=== PATIENT | male | born 1955 | race Caucasian/White ===

== ENCOUNTER → 2020-09-06 10:46 | Outpatient (BNVA) | payer MEDICARE, OTHER, SELFPAY | PROVIDERS: Visit Provider Urology | DX: N40.1 Benign prostatic hyperplasia with lower urinary tract symptoms (principal); N30.80 Other cystitis without hematuria; N13.8 Other obstructive and reflux uropathy; N20.0 Calculus of kidney | CPT/HCPCS: 51798; 81002; 99212 ==

== ENCOUNTER → 2021-09-11 09:37 | Outpatient (BNVA) | payer MEDICARE, OTHER, SELFPAY | PROVIDERS: PCP Internal Medicine; Visit Provider Urology | DX: N40.1 Benign prostatic hyperplasia with lower urinary tract symptoms (principal); N13.8 Other obstructive and reflux uropathy; N30.80 Other cystitis without hematuria | CPT/HCPCS: 99212 ==

== ENCOUNTER → 2022-11-21 10:17 | Outpatient (BNVA) | payer MEDICARE, MEDICAID, SELFPAY | PROVIDERS: PCP Internal Medicine; Visit Provider Urology | DX: N40.1 Benign prostatic hyperplasia with lower urinary tract symptoms (principal); N13.8 Other obstructive and reflux uropathy; N30.80 Other cystitis without hematuria | CPT/HCPCS: 51798; 99212 ==

== ENCOUNTER 2023-11-20 09:45 | Outpatient (REF) | payer MEDICARE, SELFPAY ==
[2023-11-20 11:35] LABS: Prostate Specific Antigen 1.41 ng/mL (<0.05-4.0)
== END 2023-11-20 09:46 | disposition home or self-care (01) ==
LOC: HO.LAB 09:45
PROVIDERS: Visit Provider Urology
DX: Z12.5 Encounter for screening for malignant neoplasm of prostate (principal); N40.1 Benign prostatic hyperplasia with lower urinary tract symptoms; N13.8 Other obstructive and reflux uropathy
CPT/HCPCS: 36415; 84153

== ENCOUNTER 2023-11-27 09:21 | Outpatient (AMB) | payer MEDICARE, MEDICAID, SELFPAY ==
--- NOTE | 2023-11-27 09:42 | A.OFFVIS_ITS ---
Intake Intake Visit Reasons: 1Y PSA(set)Confirmed Intake Note: Patient presents today for a yearly follow-up Meds- None Allergies to Antibiotic- No Known Allergies Blood Thinner- None Post Void Residual: 29ml Donor Services Manager Required: No Accompanied by: Self / Same As Patient Allergies acetaminophen [Tylenol] Allergy (Unknown, Verified 11/27/23 09:44) Unknown aspirin Allergy (Unknown, Verified 11/27/23:44) Unknown orange juice Allergy (Unknown, Uncoded 11/27/23:44) Unknown HPI HPI Comments History of Present Illness Details Yoseph is a pleasant male. He is a patient of Dr. Arnold. He seen for the following urologic conditions - lower urinary tract symptoms - cystitis cystica - nephrolithiasis Current PVR 30 cc, prior PVR 0 cc Stable urinary performance Five years from Procedure May follow up p.r.n. Lower Urinary Tract Symptoms: Laser procedure prostate 10/09 Current visit is for further evaluation of, post - prostate procedure. Current treatment includes observation. Prior treatments include procedure 10/09 - biopsy diagnosis with cystitis cystica Prostate Symptom Score 07/09 , Mild (0-8), Bother 1. Results from testing include cystoscopy high riding bladder neck (median bar) 08/08 PSA 12/07 0.8 06/10 1.8, 06/12 1.4, 11/15 2.4 Testing at next visit will include bladder scan, PSA PFSH Medical History Chronic diarrhea OA (osteoarthritis) Cystitis cystica Acute cystitis with hematuria Weak urinary stream BPH (benign prostatic hyperplasia) Surgical History History of surgery Social History Patient Tobacco Use Status: Current everyday Tobacco user Review of Systems Const Denies chills and Denies fever(s) Card Reports no additional complaints and Denies syncope Resp Denies cough GI Denies abdominal pain and Denies heartburn Reports as per HPI and Denies change in libido Neuro Denies syncope Psych Denies change in libido Endo Denies change in libido Physical Exam Const General: cooperative, healthy appearing, comfortable and no acute distress Orientation/consciousness: patient oriented x3 HEENT Face and sinus: Yes normal facial exam Mouth: moist mucous membranes Neck Neck: Yes normal visual inspection, Yes full ROM and Yes trachea midline Chest Chest palpation & inspection: normal inspection of the chest Resp Effort & Inspection: normal respiratory effort, able to speak in complete sentences and no respiratory distress GI Inspection: Yes normal to inspection Back/Spine/Pelvis Cervical Spine: normal cervical lordosis Thoracic/Lumbar Spine: thoracic and lumbar spine normal to inspection Skin General skin exam: no rashes or lesions noted Neuro General: patient oriented x3, gait normal, tone normal and moves all extremities Extrem General: Yes normal to inspection and Yes capillary refill normal Office Procedures Post Void Residual Post Residual Void Post Void Residual (PVR): 29 05533-Dark Void Residual by ultrasound Assessment & Plan Assessment & Plan (1) BPH w urinary obs/LUTS: Code(s): N40.1 - Benign prostatic hyperplasia with lower urinary tract symptoms; N13.8 - Other obstructive and reflux uropathy (2) Nephrolithiasis: Code(s): N20.0 - Calculus of kidney (3) Cystitis cystica: Code(s): N30.80 - Other cystitis without hematuria Plan P.r.n. follow-up Orders: Orders AMB Post Void Residual by ultrasound Today R33.9 - Retention of urine, unspecified Patient Instructions: Imaging studies, laboratory and physical exam results were discussed and reviewed in detail. No major barriers to patient understanding were identified. An opportunity to ask questions regarding the treatment plan was provided. All questions were answered. The patient expressed understanding and agreement with the above treatment plan. The patient is aware they should contact our office by phone for worsening of their current condition or the appearance of new urologic symptoms. Compliance is encouraged with any medications and followup testing that is ordered. It is a privilege to participate in the urologic care of your patient. If you have any questions or concerns regarding treatment for the above conditions, or other urologic issues, please do not hesitate to contact me. The office telephone contact is [phone]. This note is constructed using voice recognition software. While every effort has been made to ensure accuracy drug abuse technician errors may have been included. Yours sincerely, Dr Anthony Castro MD, [facility] - Urology Providers of Expert, Compassionate Care for the Genitourinary System Coding Level of Care Code Est Pt Level 4 (21631) Diagnoses BPH w urinary obs/LUTS N40.1; N13.8 Nephrolithiasis N20.0 Cystitis cystica N30.80 CPT Codes Post Residual Void - PVR CPT Code: 12025-Xfad Void Residual by ultrasound ([id number])
== END 2023-11-27 10:03 | disposition home or self-care (01) ==
PROVIDERS: Visit Provider Urology
DX: N40.1 Benign prostatic hyperplasia with lower urinary tract symptoms (principal); N13.8 Other obstructive and reflux uropathy; N20.0 Calculus of kidney; N30.80 Other cystitis without hematuria
CPT/HCPCS: 99213

== ENCOUNTER → 2023-11-27 09:21 | Outpatient (BNVA) | payer MEDICARE, MEDICAID, SELFPAY | PROVIDERS: Visit Provider Urology | DX: N40.1 Benign prostatic hyperplasia with lower urinary tract symptoms (principal); N13.8 Other obstructive and reflux uropathy; N20.0 Calculus of kidney; N30.80 Other cystitis without hematuria | CPT/HCPCS: 51798; 99212 ==

== ENCOUNTER 2025-05-04 12:52 | Outpatient (AMB) | payer MEDICARE, MEDICAID, SELFPAY ==
--- NOTE | 2025-05-04 13:02 | A.OFFVIS_ITS ---
Intake Visit Reasons: Elevated PSA Intake Note: Patient presents today for: FOLLOW UP UROLOGY Meds- None Blood Thinner- None Post Void Residual: 25MLS Electric Operator Required: No Accompanied by: Self / Same As Patient Allergies acetaminophen (Tylenol) Allergy (Unknown, Verified 05/04/25 13:03) Unknown aspirin Allergy (Unknown, Verified 05/04/25 13:03) Unknown orange juice Allergy (Unknown, Uncoded 05/04/25 13:03) Unknown HPI Comments Details: Yoseph is a pleasant male. He is a patient of Dr. Arnold. He seen for the following urologic conditions - lower urinary tract symptoms - cystitis cystica - nephrolithiasis Last seen 18 months ago Referred for elevated PSA PSA has jumped to 7.7 Would obtain prostate MRI Tissue from prior procedure indicated BPH with no evidence of prostate cancer NICK 1+ no nodules Current PVR 30 cc, prior PVR 0 cc Lower Urinary Tract Symptoms: Laser procedure prostate 10/09 Current visit is for further evaluation of, post - prostate procedure. Current treatment includes observation. Prior treatments include procedure 10/09 - biopsy diagnosis with cystitis cystica Prostate Symptom Score 07/09 , Mild (0-8), Bother 1. Results from testing include cystoscopy high riding bladder neck (median bar) 08/08 PSA 12/07 0.8 06/10 1.8, 06/12 1.4, 11/15 1.4 Testing at next visit will include bladder scan, PSA PFSH Medical History Chronic diarrhea OA (osteoarthritis) Cystitis cystica Acute cystitis with hematuria Weak urinary stream BPH (benign prostatic hyperplasia) Surgical History History of surgery Social History Patient Tobacco Use Status: Current everyday Tobacco user Review of Systems Const Denies chills and Denies fever(s) Card Reports no additional complaints and Denies syncope Resp Denies cough GI Denies abdominal pain and Denies heartburn Reports as per HPI and Denies change in libido Neuro Denies syncope Psych Denies change in libido Endo Denies change in libido Physical Exam Const General: cooperative, healthy appearing, comfortable and no acute distress Orientation/consciousness: patient oriented x3 HEENT Face and sinus: Yes normal facial exam Mouth: moist mucous membranes Neck Neck: Yes normal visual inspection, Yes full ROM and Yes trachea midline Chest Chest palpation & inspection: normal inspection of the chest Resp Effort & Inspection: normal respiratory effort, able to speak in complete sentences and no respiratory distress GI Inspection: Yes normal to inspection Rectal Exam - Male: Yes normal sphincter tone and Yes prostate normal Male General Exam: Yes normal external exam Penis: normal penis and circumcised Meatus: meatus normal Scrotum: scrotum normal Testes: Testes normal Back/Spine/Pelvis Cervical Spine: normal cervical lordosis Thoracic/Lumbar Spine: thoracic and lumbar spine normal to inspection Skin General skin exam: no rashes or lesions noted Neuro General: patient oriented x3, gait normal, tone normal and moves all extremities Extrem General: Yes normal to inspection and Yes capillary refill normal Office Procedures Post Void Residual Post Residual Void Post Void Residual (PVR): 25 66266-Himf Void Residual by ultrasound Results AMB Urinalysis, Automated UA Leukoctes 0 Holly/uL Last Edit by WILLIE Ronquillo on 05/04/25 13:24 UA Nitrite Negative Last Edit by WILLIE Ronquillo on 05/04/25 13:24 UA Urobilinogen 0.2 mg/dL Last Edit by WILLIE Ronquillo on 05/04/25 13:2 4 UA Protein 0 mg/dL Last Edit by WILLIE Ronquillo on 05/04/25 13:24 UA pH 6.0 Last Edit by WILLIE Ronquillo on 05/04/25 13:24 UA Blood 0 Glenn/uL Last Edit by WILLIE Ronquillo on 05/04/25 13:24 UA Specific Gatzke 1.015 Last Edit by WILLIE Ronquillo on 05/04/25 13: 24 UA Ketone Negative Last Edit by WILLIE Ronquillo on 05/04/25 13:24 UA Bilirubin 0 mg/dL Last Edit by WILLIE Ronquillo on 05/04/25 13:24 UA Glucose 0 mg/dL Last Edit by WILLIE Ronquillo on 05/04/25 13:24 Results Reviewed Results Reviewed: Laboratory Last Values Urine pH (Auto) 6.0 05/04/25 13:24 Specific Gatzke (Auto) 1.015 05/04/25 13:24 Urine Protein (Auto) 0 mg/dL 05/04/25 13:24 Glucose (UA)(Auto) 0 mg/dL 05/04/25 13:24 Urine Ketones (Auto) Negative 05/04/25 13:24 Urine Blood (Auto) 0 Glenn/uL 05/04/25 13:24 Urine Nitrite (Auto) Negative 05/04/25 13:24 Urine Bilirubin (Auto) 0 mg/dL 05/04/25 13:24 Urine Urobilinogen (Auto) 0.2 mg/dL 05/04/25 13:24 Leukocyte Esterase (Auto) 0 Holly/uL 05/04/25 13:24 Assessment & Plan Assessment & Plan (1) Elevated PSA: Code(s): R97.20 - Elevated prostate specific antigen [PSA] Category: Medical Plan Prostate MRI 4-6 week follow-up Orders: Orders 2 AMB Post Void Residual by ultrasound Today N13.8 - Other obstructive and reflux uropathy, N40.1 - Benign prostatic hyperplasia with lower urinary tract symptoms AMB Urinalysis Automated Today Z13.9 - Encounter for screening, unspecified MR Prostate wo/w con Today R97.20 - Elevated prostate specific antigen [PSA] Patient Instructions: This note is constructed using voice recognition software. While every effort has been made to ensure accuracy professional model errors may have been included. Imaging studies, laboratory and physical exam results were discussed and reviewed in detail. No major barriers to patient understanding were identified. An opportunity to ask questions regarding the treatment plan was provided. All questions were answered. The patient expressed understanding and agreement with the above treatment plan. The patient is aware they should contact our office by phone for worsening of their current condition or the appearance of new urologic symptoms. Compliance is encouraged with any medications and followup testing that is ordered. It is a privilege to participate in the urologic care of your patient. If you have any questions or concerns regarding treatment for the above conditions, or other urologic issues, please do not hesitate to contact me. The office telephone contact is [phone]. Sincerely, Dr Anthony Castro MD, [facility] - Urology Compassionate Specialist Care for the Genitourinary System Coding Level of Care Code Est Pt Level 4 (19777) Diagnoses Elevated PSA R97.20 CPT Codes Post Residual Void - PVR CPT Code: 34781-Wgjm Void Residual by ultrasound ([id number])
--- OUTSIDE RECORDS SUMMARY | 2025-05-04 13:24 | XMS_ITS | Clinical Summary ---
Author Organization [facility] Address [address] [place] [phone] Phone Care Team Providers Care Rug Scratcher Name Role Phone Physician, Pcp Unknown Primary Care Provider Ewelina vailable Allergies No known active allergies Medications albuterol HFA (PROAIR HFA ; PROVENTIL HFA ; VENTOLIN HFA) 90 mcg/actuation inhaler Inhale 2 puffs by mouth every 6 (six) hours if needed for shortness of breath or wheezing. 4 Active amLODIPine (NORVASC) 2.5 mg tablet Take 1 tablet (2.5 mg total) by mouth 1 (one) time each day. 30 each 5 Active doxycycline (VIBRAMYCIN) 100 mg capsule Take 1 capsule (100 mg total) by mouth 2 (two) times a day. Take with at least 8 ounces (large glass) of water, do not lie down for 30 minutes after 10 each 5 Active Active Problems No known active problems Resolved Problems Problem Noted Date Diagnosed Date Resolved Date Severe sepsis ([facility] V24, [facility] V28) 11/16/2024 11/19/2024 Surgical History Surgery Date Site/Laterality Comments OTHER SURGICAL HISTORY abdominal. tumor removed? pt unable to further explain Medical History Medical History Date Comments COPD (chronic obstructive pulmonary disease) ([facility] V24, [facility] V28) Hypertension Social History Tobacco Use Types Packs/Day Years Used Date Smoking Tobacco: Every Day Cigarettes 3 40 Tobacco Cessation:Ready to Q uit: Not Asked; Counseling Given: Not Answered Alcohol Use Standard Drinks/Week Comments Not Currently 0 (1 standard drink = 0.6 oz pur e alcohol) Housing Instability Answer Date Recorde d Are you worried that in the next 2 months you may not have stable housing? No 11/16/2024 Food Access & Nutrition Answer Date Rec orded Do you have access to a vari ety of food including fruits and vegetables? Yes 11/16/2024 Health Literacy Answer Date Recorded How often do you need to hav e someone help you when you read instructions, pamphlets, or other written material from your doctor or pharmacy? Rarely 11/16/2024 Caregiver: How often do you need to have someone help you when you read instructions, pamphlets, or other written material from your doctor or pharmacy? Not on file 11/16/2024 Financial Risk Answer Date Recorded How hard is it for you to pa y for the very basics like food, housing, medical care, and air conditioning / heating? Not very hard 11/16/2024 Transportation Answer Date Recorded Has the lack of transportati on kept you from meetings, work, or from getting things needed for daily living? No Has the lack of transportati on kept you from medical appointments or from getting medications? No 11/16/2024 Social Isolation Answer Date Recorded How often do you feel lonely or isolated from th ose around you? Rarely 11/16/2024 Food Risk Answer Date Recorded Within the past 12 months we worried whether our food would run out before we got money to buy more. Never true 11/16/2024 Within the past 12 months th e food we bought just didn't last and we didn't have money to get more. Never true 11/16/2024 Dependent Care Answer Date Recorded Do you need help finding or paying for care for your loved ones. For example, residential child care counselor or elderly care for an older adult? No 11/16/2024 Education Answer Date Recorded Do you think completing more education or training, like finishing a GED, going to college, or learning a trade, would be helpful for you? No 11/16/2024 Employment and Income Answer Date Recor ded During the last four weeks, have you been actively looking for work? No 11/16/2024 Living Situation Answer Date Recorded What is your living situation? 0 11/16/2024 Interpersonal Safety Answer Date Record ed Physical Abuse 11/16/2024 Verbal Abuse 11/16/2024 Sex and Gender Information Value Date Recorded Sex Assigned at Male 11/16/2024 4:26 PM EST Legal Sex Male 10:51 AM EST Gender Identity Male 11/16/2024 4:26 PM EST Sexual Orientation Straight 11/16/2024 4: 26 PM EST Obstetrics History Last Filed Vital Signs Vital Sign Reading Time Taken Comments Blood Pressure 129/71 11/19/2024 6:18 AM EST Pulse 53 11/19/2024 6:18 AM EST Temperature 36.2 C (97.1 F) 11/19/2024 6:18 AM EST Respiratory Rate 12 11/19/2024 6:18 AM EST Oxygen Saturation 97% 11/19/2024 6:18 AM EST Inhaled Oxygen Concentration - - Weight 57.2 kg (126 lb 3.2 oz) 11/16/2024 9:57 P M EST Height 172.7 cm (5' 8 ) 11/16/2024 9:57 PM EST Body Mass Index 19.19 11/16/2024 9:57 PM EST Plan of Treatment Health Maintenance Due Date Last Done Comments Pneumococcal Vaccine: 50+ Years (3 of 3 - PCV20 or PCV21) 11/16/2023 11/16/2018, 06/17/2018, 07/09/2012 Depression Screening 09/22/2024 Abdominal Aortic Aneurysm (AAA) Screen 11/17/2024 Cholesterol Screening (Lipid Panel) 11/17/2024 Colorectal Cancer Screening: Colonoscopy 11/17/2024 Hepatitis C Screening 11/17/2024 Lung Cancer Screening (Low Dose CT) 11/17/2024 Medicare Annual Wellness Visit 11/17/2024 COVID-19 Vaccine ( season) 2024 06/02/2024, 06/12/2023, 10/10/2021, Additional history exists Influenza Vaccine (#1) 2025 , 06/10/2023, 07/04/2022, Additional history exists Social Influencers of Health Screening 11/16/2025 11/16/2024 Falls Risk Assessment 11/19/2025 11/19/2024 Hypertension/CHF/CAD Annual BMP Blood Test 11/19/2025 11/19/2024, 11/17/2024, 11/16/2024 DTaP,Tdap,and Td Vaccines (3 - Td or Tdap) 10/27/2027 10/27/2017, 10/08/2007 Zoster Vaccines Completed 02/06/2022, 10/23, 07/09/2013 RSV Immunization Adult Patients Completed 06/24/2024 HIB Vaccines Aged Out No longer eligi ble based on patient's age to complete this topic HPV Vaccines Aged Out No longer eligi ble based on patient's age to complete this topic Hepatitis A Vaccines Aged Out No long er eligible based on patient's age to complete this topic Hepatitis B Vaccines Aged Out No long er eligible based on patient's age to complete this topic IPV Vaccines Aged Out No longer eligi ble based on patient's age to complete this topic MMR Vaccines Aged Out No longer eligi ble based on patient's age to complete this topic Meningococcal ACWY Vaccine Aged Out N o longer eligible based on patient's age to complete this topic Meningococcal B Vaccine Aged Out No l onger eligible based on patient's age to complete this topic RSV Immunization Patients Under 20 months Aged Out No longer eligible based on patient's age to complete this topic Varicella Vaccines Aged Out No longer eligible based on patient's age to complete this topic Procedures Procedure Name Priority Date/Time Associated Diagnosis Comments BASIC METABOLIC PANEL Timed 11/19/2024 7:37 AM EST from Last 3 Months or Most Recently Relevant to Health Maintenance Results * (ABNORMAL) Basic metabolic panel (11/19/2024 7:37 AM EST) Sodium 139 133 - 145 mmol/L LAB CHEMISTRY METHOD 11/19/2024 9:51 AM [facility] Potassium 3.3(L) 3.5 - 5.5 mmol/L LAB CHEMISTRY METHOD 11/19/2024 9:51 AM EST [facility] Chloride 103 96 - 110 mmol/L LAB CHEMISTRY METHOD 11/19/2024 9:51 AM EST [facility] CO2 30 21 - 32 mmol/L LAB CHEMISTRY METHOD 11/19/2024 9:51 AM [facility] Anion Gap 6 3 - 11 LAB CHEMISTRY METHOD 11/19/2024 9:51 AM [facility] Glucose 91 70 - 100 mg/dL LAB CHEMISTRY METHOD 11/19/2024 9:51 AM EST [facility] BUN 20 5 - 25 mg/dL LAB CHEMISTRY METHOD 11/19/2024 9:51 AM [facility] Creatinine 1.00 0.70 - 1.30 mg/dL LAB CHEMISTRY METHOD 11/19/2024 9:51 AM [facility] eGFR 80 >=60 mL/min/1. 73m2 LAB CHEMISTRY METHOD 11/19/2024 9:51 AM [facility] Comment:Calculation based on the Chronic Kidney Disease Epidemiology Collaboration (CKD-EPI) equation refit without adjustment for race. BUN/Creatinine Ratio 20.0 LAB CHEMISTRY METHOD 11/19/2024 9:51 AM [facility] Calcium 9.1 8.5 - 10.5 mg/dL LAB CHEMISTRY METHOD 11/19/2024 9:51 AM [facility] Blood Venous blood specimen / Unknown Venipuncture / Unknown 11/19/2024 7:37 AM EST 11/19/2024 7:50 AM EST Kailash Weber MD LAB BLOOD ORDERABLES Final Resul t [facility] [address] [place] [address], from Last 3 Months or Most Recently Relevant to Health Maintenance Insurance [employer] Advance Directives * Full Code - Default (Latest Code Status on File) Date Activated Date Inactivated Comments 11/16/2024 6:51 PM 11/19/2024 5:14 PM This is orde r is used when code status has not been discussed with the patient, or code status is otherwise unknown/unconfirmed To update the patient's code status, place a code status order. Do not modify or discontinue any currently active code status orders. Care Teams Rug Scratcher Relationship Specialty Start Date End Date Physician, Pcp Unknown PCP - General 11/16/24
--- OUTSIDE RECORDS SUMMARY | 2025-05-04 13:24 | XMS_ITS | Encounter Summary ---
Author Organization [facility] Address [address] [facility] [address] [place] [address] Care Team Providers Care Collar Tacker Name Role Phone Hayley Alonzo Unassigned Primary Care Provider U navailable Encounter Details Date Type Department Care Team (Latest Contact Info) Description 11/30/2019 [facility] Dental, Provider, DDS Social History Tobacco Use Types Packs/Day Years Used Date Smoking Tobacco: Never Assessed Comments Unknown Sex and Gender Information Value Date Recorded Sex Assigned at Choose not to disclose 9:11 AM EDT Legal Sex Male 5:34 PM EDT Gender Identity Choose not to disclose 9:11 AM EDT Sexual Orientation Choose not to disclose 2022 9:11 AM EDT documented as of this encounter Plan of Treatment Upcoming Encounters Date Type Department Care Team (Late st Contact Info) Description 09/14/2025 11:30 AM EST Office Visit Hayley [facility] [address] [place] [address] Vipul Ricardo documented as of this encounter Visit Diagnoses Not on filedocumented in this encounter Care Teams Collar Tacker Relationship Specialty Start Date End Date Hayley Alonzossrafaela PCP - General Family Medicine 01/20/23 documented as of this encounter
== END 2025-05-04 13:39 | disposition home or self-care (01) ==
LOC: HO.HUSH 12:53
PROVIDERS: PCP Internal Medicine; Visit Provider Urology
DX: R97.20 Elevated prostate specific antigen [PSA] (principal); Z13.9 Encounter for screening, unspecified
CPT/HCPCS: 99214

== ENCOUNTER → 2025-05-04 12:52 | Outpatient (BNVA) | payer MEDICARE, SELFPAY | PROVIDERS: PCP Internal Medicine; Visit Provider Urology | DX: R97.20 Elevated prostate specific antigen [PSA] (principal); N40.1 Benign prostatic hyperplasia with lower urinary tract symptoms; N13.8 Other obstructive and reflux uropathy | CPT/HCPCS: 51798; 81003; 99212 ==

== ENCOUNTER 2025-06-01 08:41 | Outpatient (REF) | payer MEDICARE, SELFPAY ==
--- NOTE | ~2025-06-01 | MR_ITS ---
EXAMINATION: MR PROSTATE WITHOUT THEN WITH IV CONTRAST HISTORY: R97.20 - Elevated prostate specific antigen [PSA] TECHNIQUE: 1.5T body coil survey of the pelvis was performed. Phase array coil imaging of the prostate was performed in multiplanar high resolution axial, coronal, sagittal fast spin echo T2 and axial T1 weighted imaging sequences. Axial diffusion imaging at intermediate and high field performed with ADC mapping. Next, 6.5 mL Gadavist was given by intravenous infusion, and dynamic axial imaging performed. 3-D reconstructions and post-processing were performed as no discrete lesion was identified. COMPARISON: There are no prior studies available for comparison. CLINICAL DATA: Most recent PSA: 7.7 ng/mL on 03/03/2025. PSA Density: 0.206 ng/mL squared Prostate Biopsy: None reported FINDINGS: Prostate size: 4.4 x 4.8 x 3.4 cm. Calculated prostate volume is 37.3 mL. Hemorrhage: None. Transitional Zone: There is moderate heterogeneous nodular hypertrophy of the transitional zone. There is an exophytic BPH nodule at the left base. Peripheral Zone: No discrete focus of abnormal signal intensity is seen. There are no foci of restricted diffusion. Seminal Vesicles/Ejaculatory Ducts: Symmetric and normal in signal and caliber. Pelvic Lymph Nodes: No obturator or internal iliac lymph nodes meeting size criteria for adenopathy. Marrow Signal: Normal marrow signal and enhancement without focal lesion identified. MR/MR Prostate wo/w con IMPRESSION: No discrete focus of abnormal signal intensity is identified to suggest clinically significant prostate carcinoma. PI-RADS 1: Very low (clinically significant cancer is highly unlikely to be present) PI-RADS Assessment Categories PI-RADS 1: Very low (clinically significant cancer is highly unlikely to be present) PI-RADS 2: Low (clinically significant cancer is unlikely to be present) PI-RADS 3: Intermediate (the presence of clinically significant cancer is equivocal) PI-RADS 4: High (clinically significant cancer is likely to be present) PI-RADS 5: Very high (clinically significant cancer is highly likely to be present) [employer]. MR Prostate Imaging Reporting and Data System version 2.1. [email or web address]/Quality-Safety/Resources/PIRADS/ Electronically signed by: Estuardo Poe MD 06/01/2025 09:58 AM EDT
--- OUTSIDE RECORDS SUMMARY | 2025-06-01 10:09 | XMS_ITS | Encounter Summary ---
Author Organization [facility] Address [address] [facility] [address] [place] [address] Care Team Providers Care Direct Response Consultant Name Role Phone Hayley Alonzo Unassigned Primary Care Provider U navailable Encounter Details Date Type Department Care Team (Latest Contact Info) Description 12/03/2021 [facility] Dental, Provider, DDS Social [...] 09/14/2025 11:30 AM EST Office Visit Hayley [facility] [address] [place] [address] Vipul Ricardo documented as of this encounter Visit Diagnoses Not on filedocumented in this encounter Care Teams Direct Response Consultant Relationship Specialty Start Date End Date Hayley Alonzossrafaela PCP - General Family Medicine 01/20/23 documented as of this encounter
--- OUTSIDE RECORDS SUMMARY | 2025-06-01 10:09 | XMS_ITS | Clinical Summary ---
Author Organization [facility] Address [address] [place] [phone] Phone Care Team Providers Care Accredited Pharmacy Technician Name Role Phone Physician, Pcp Unknown Primary [...] Date Diagnosed Date Resolved Date Severe sepsis ([facility] V24, [facility] V28) 11/16/2024 11/19/2024 Surgical History Surgery Date Site/Laterality Comments OTHER SURGICAL HISTORY abdominal. tumor removed? pt unable to further explain Medical History Medical History Date Comments COPD (chronic obstructive pulmonary disease) ([facility] V24, [facility] V28) Hypertension Social History Tobacco Use [...] care for your loved ones. For example, school childcare attendant or elderly care for an older adult? [...] Wellness Visit 11/17/2024 COVID-19 Vaccine ( season) 2025 06/02/2024, 06/12/2023, 10/10/2021, Additional history exists Influenza [...] mmol/L LAB CHEMISTRY METHOD 11/19/2024 9:[address] [facility] Potassium 3.3(L) 3.5 - 5.5 mmol/L LAB CHEMISTRY METHOD 11/19/2024 9:51 AM EST [facility] Chloride 103 96 - 110 mmol/L LAB CHEMISTRY METHOD 11/19/2024 9:51 AM EST [facility] CO2 30 21 - 32 mmol/L LAB CHEMISTRY METHOD 11/19/2024 9:[address] [facility] Anion Gap 6 3 - 11 LAB CHEMISTRY METHOD 11/19/2024 9:[address] [facility] Glucose 91 70 - 100 mg/dL LAB CHEMISTRY METHOD 11/19/2024 9:51 AM EST [facility] BUN 20 5 - 25 mg/dL LAB CHEMISTRY METHOD 11/19/2024 9:[address] [facility] Creatinine 1.00 0.70 - 1.30 mg/dL LAB CHEMISTRY METHOD 11/19/2024 9:[address] [facility] eGFR 80 >=60 mL/min/1. 73m2 LAB CHEMISTRY METHOD 11/19/2024 9:[address] [facility] Comment:Calculation based on the Chronic Kidney Disease Epidemiology Collaboration (CKD-EPI) equation refit without adjustment for race. BUN/Creatinine Ratio 20.0 LAB CHEMISTRY METHOD 11/19/2024 9:[address] [facility] Calcium 9.1 8.5 - 10.5 mg/dL LAB CHEMISTRY METHOD 11/19/2024 9:[address] [facility] Blood Venous blood specimen / Unknown Venipuncture / Unknown 11/19/2024 7:37 AM EST 11/19/2024 7:50 AM EST Kailash Weber MD LAB BLOOD ORDERABLES Final Resul t [facility] [address] [place] [address], from Last 3 Months or Most Recently [...] currently active code status orders. Care Teams Accredited Pharmacy Technician Relationship Specialty Start Date End Date Physician, Pcp Unknown PCP - General 11/16/24
--- OUTSIDE RECORDS SUMMARY | 2025-06-01 10:09 | XMS_ITS | Encounter Summary ---
Author Organization [email or web address] Address [address] [facility] 7t [place] [address] Care Team Providers Care Veterinary Nurse Name Role Phone Hayley Alonzo Unassigned Primary [...] 09/14/2025 11:30 AM EST Office Visit Hayley [facility] [address] [place] [address] Vipul Ricardo documented as of this encounter Visit Diagnoses Not on filedocumented in this encounter Care Teams Veterinary Nurse Relationship Specialty Start Date End Date Hayley Alonzossrafaela PCP - General Family Medicine 01/20/23 documented as of this encounter
--- OUTSIDE RECORDS SUMMARY | 2025-06-01 10:09 | XMS_ITS | Encounter Summary ---
Author Organization [employer] Address 75 [facility] 7t [place] [address] Care Team Providers Care Professional Nurse Name Role Phone Hayley Alonzo Unassigned Primary Care Provider U navailable Encounter Details Date Type Department Care Team (Latest Contact Info) Description 06/04/2021 Abstract [facility] CONVERSIONS Dental, Provider, DDS Social [...] 09/14/2025 11:30 AM EST Office Visit Hayley [facility] [address] [place] [address] Vipul Ricardo documented as of this encounter Visit Diagnoses Not on filedocumented in this encounter Care Teams Professional Nurse Relationship Specialty Start Date End Date Hayley Alonzossrafaela PCP - General Family Medicine 01/20/23 documented as of this encounter
--- OUTSIDE RECORDS SUMMARY | 2025-06-01 10:09 | XMS_ITS | Clinical Summary ---
Author Organization [employer] Address [address] [facility] 7 [place] [address] Care Team Providers Care Bookmaker'S Clerk Name Role Phone Pcp, Hayley Unassigned Primary Care Provider U navailable Allergies Active Allergy Reactions Criticality Noted Date Comments Acetaminophen 02/22/2023 Other reaction(s): vomiting Albuterol 02/22/2023 Medications fluocinonide (Lidex) 0.05 % external solution APPLY TO SCALP DAILY DIRECTED 2 Active betamethasone dipropionate (Diprolene) 0.05 % ointment 75 Gm, APPLY TO AFFECTED AREA TWICE A DAY X 2 WEEKS OR LESS AND NEEDED FOR FLARING, 0 Refills, 07/04/22 11:41:00 EDT, Partial fill upon patient request if the prescription is for a schedule II opioid drug. 2 Active amLODIPine (Norvasc) 10 MG tablet Take 10 mg by mouth in the morning. 2 Active albuterol 108 (90 Base) MCG/ACT inhaler INHALE 2 PUFFS BY MOUTH 4 TIMES A DAY FOR 90 DAYS NEEDED FOR WHEEZING 3 Active Cholecalciferol (Vitamin D3) 403511 UNIT/GM powder Take 1,000 Int'l Units by mouth. 8 Active Encounters Date Type Department Care Team Description 03/15/2025 9:30 AM EDT Office Visit Hayley [facility] [address] [place], [place] [phone] Belkis Landa Encounter for dental examination (Primary Dx); Periodontal disease from Last 3 Months Immunizations Immunization Administration Dates Next Due Influenza Injectable Quadriv alant Preservative Free IIV4 MDCK 06/17/2017 Influenza, High Dose Seasona l, Preservative Free 05/28/2019,05/30/2018 Influenza, IIV3, injectable 07/04/2022,1 ,06/28/2020,05/30,08/13/2016,07/10/2015,05/27/2012 Pneumococcal Conjugate PCV 13 11/16/2018, 019,06/17/2018 Pneumococcal Polysaccharide PPSV23 07/09/2012 Td (adult), unspecified 10/27/2017 Tdap 10/08/2007 Zoster, Recombinant 02/06/2022,11/08/2021 Zoster, live 07/09/2013 Social History Tobacco Use Types Packs/Day Years Used Date Smoking Tobacco: Every Day Cigarettes Smokeless Tobacco: Never Tobacco Cessation:Ready to Q uit: Not Asked; Counseling Given: Not Answered Alcohol Use Standard Drinks/Week Comments Never 0 (1 standard drink = 0.6 oz pur e alcohol) Comments Unknown Sex and Gender Information Value Date Recorded Sex Assigned at Choose not to disclose 9:11 AM EDT Legal Sex Male 5:34 PM EDT Gender Identity Choose not to disclose 9:11 AM EDT Sexual Orientation Choose not to disclose 2022 9:11 AM EDT Last Filed Vital Signs Vital Sign Reading Time Taken Comments Blood Pressure 131/86 03/15/2025 9:46 AM EDT Pulse 64 03/15/2025 9:46 AM EDT Temperature - - Respiratory Rate - - Oxygen Saturation - - Inhaled Oxygen Concentration - - Weight - - Height - - Body Mass Index - - Plan of Treatment Upcoming Encounters Date Type Department Care Team (Late st Contact Info) Description 09/14/2025 11:30 AM EST Office Visit [facility] DENTAL [address] [place] [phone] Vipul Ricardo Health Maintenance Due Date Last Done Comments CT Colonography 1953 Colonoscopy 1953 Colorectal Cancer Screening 1953 Depression Screening 1953 FIT DNA/Cologuard 1953 FIT 1953 FOBT 1953 Lipid Panel 1953 SDOH Screening 1953 Sigmoidoscopy 1953 Alcohol/Substance Use Screening 1965 Hepatitis C Screening 1971 RSV Patients and Patients Aged 60 years or older (1 - Risk 60-74 years 1-dose series) 2013 Pneumococcal Vaccine: 50+ Years (3 of 3 - PCV20 or PCV21) 11/16/2023 11/16/2018, 11/16/2018, 06/17/2018, Additional history exists Dental X-Ray: Full Mouth 06/05/2024 021, 04/02/2018, 11/30/2013, Additional history exists COVID-19 Vaccine ( season) 2025 06/02/2024, 06/12/2023, 10/10/2021, Additional history exists Influenza Vaccine (#1) 2025 , 06/02/2024, 06/10/2023, Additional history exists Dental Oral Exam 09/15/2025 03/15/2025, , 01/15/2024, Additional history exists Dental Prophylaxis 09/15/2025 03/15/2025, 1 10/11/2023, 01/15/2024, Additional history exists Tobacco Screening 03/15/2026 03/15/2025 Dental X-Ray: Bitewings 03/16/2026 03/15/20, 01/15/2024, 12/13/2022, Additional history exists DTaP/Tdap/Td Vaccines (3 - Td or Tdap) 10/27/2027 10/27/2017, 10/08/2007 Zoster Vaccines Completed 02/06/2022, 10/23, 07/09/2013 HIB Vaccines Aged Out No longer eligi [...] patient's age to complete this topic Meningococcal Vaccine Aged Out No mindy dorian eligible based on patient's age to complete this topic RSV under 20 months Aged Out No longe r eligible based on patient's age to complete this topic Rotavirus Vaccines Aged Out No longer eligible based on patient's age to complete this topic Procedures Procedure Name Priority Date/Time Associated Diagnosis Comments ORAL HYGIENE INSTRUCTIONS Routine 2024 9:30 AM EDT BITEWINGS - 4 RADIOGRAPHIC IMAGES Routine 03/15/2025 9:30 AM EDT Full PROPHYLAXIS - ADULT Routine 025 9:30 AM EDT PERIODIC ORAL EVALUATION - ESTABLISHED PATIENT Routine 03/15/2025 9:30 AM EDT INTRAORAL - COMPLETE SERIES OF RADIOGRAPHIC IMAGES Routine 06/04/2021 12:00 AM EDT from Last 3 Months or Most Recently Relevant to Health Maintenance Care Teams Bookmaker'S Clerk Relationship Specialty Start Date End Date PcpHayley Unassigned PCP - General Family Medicine 01/20/23
== END 2025-06-01 08:42 | disposition home or self-care (01) ==
LOC: HO.MRI 08:41
PROVIDERS: Visit Provider Urology
DX: R97.20 Elevated prostate specific antigen [PSA] (principal)
CPT/HCPCS: 72197; 76377; A9585

== ENCOUNTER → 2025-06-01 08:41 | Outpatient (BNV) | payer MEDICARE, SELFPAY | PROVIDERS: Visit Provider Radiology Diagnostic Radiology | DX: N40.0 Benign prostatic hyperplasia without lower urinary tract symptoms (principal) | CPT/HCPCS: 72197 ==

== ENCOUNTER 2025-06-15 09:59 | Outpatient (AMB) | payer MEDICARE, SELFPAY ==
--- NOTE | 2025-06-15 10:07 | A.OFFVIS_ITS ---
Intake Visit Reasons: 6w MRI Intake Note: Patient presents today for: FOLLOW UP UROLOGY Meds- None Blood Thinner- None Imaging : MRI 06/01/25 Last Post Void Residual: 25MLS Account Management Assistant Required: No Accompanied by: Self / Same As Patient Allergies acetaminophen (Tylenol) Allergy (Unknown, Verified 06/15/25 10:07) Unknown aspirin Allergy (Unknown, Verified 06/15/25 10:07) Unknown orange juice Allergy (Unknown, Uncoded 05/04/25 13:03) Unknown HPI Comments Details: Yoseph is a pleasant male. He is a patient of Dr. Arnold. He seen for the following urologic conditions - lower urinary tract symptoms - cystitis cystica - nephrolithiasis Prostate MRI obtained for elevated PSA 40 g prostate No suspicious areas Trial finasteride NICK 1+ no nodules Current PVR 30 cc, prior PVR 0 cc Elevated PSA PSA - 03/16 7.7 MRi - No discrete focus of abnormal signal intensity is identified to suggest clinically significant prostate carcinoma Lower Urinary Tract Symptoms: Laser procedure prostate 10/09 Current visit is for further evaluation of, post - prostate procedure. Current treatment includes observation. Prior treatments include procedure 10/09 - biopsy diagnosis with cystitis cystica Prostate Symptom Score 07/09 , Mild (0-8), Bother 1. Results from testing include cystoscopy high riding bladder neck (median bar) 08/08 PSA 12/07 0.8 06/10 1.8, 06/12 1.4, 11/15 1.4 Testing at next visit will include bladder scan, PSA PFSH Medical History Chronic diarrhea OA (osteoarthritis) Cystitis cystica Acute cystitis with hematuria Weak urinary stream BPH (benign prostatic hyperplasia) Surgical History History of surgery Social History Patient Tobacco Use Status: Current everyday Tobacco user Review of Systems Const Denies chills and Denies fever(s) Card Reports no additional complaints and Denies syncope Resp Denies cough GI Denies abdominal pain and Denies heartburn Reports as per HPI and Denies change in libido Neuro Denies syncope Psych Denies change in libido Endo Denies change in libido Physical Exam Const General: cooperative, healthy appearing, comfortable and no acute distress Orientation/consciousness: patient oriented x3 HEENT Face and sinus: Yes normal facial exam Mouth: moist mucous membranes Neck Neck: Yes normal visual inspection, Yes full ROM and Yes trachea midline Chest Chest palpation & inspection: normal inspection of the chest Resp Effort & Inspection: normal respiratory effort, able to speak in complete sentences and no respiratory distress GI Inspection: Yes normal to inspection Back/Spine/Pelvis Cervical Spine: normal cervical lordosis Thoracic/Lumbar Spine: thoracic and lumbar spine normal to inspection Skin General skin exam: no rashes or lesions noted Neuro General: patient oriented x3, gait normal, tone normal and moves all extremities Extrem General: Yes normal to inspection and Yes capillary refill normal Assessment & Plan Assessment & Plan (1) BPH w urinary obs/LUTS: Code(s): N40.1 - Benign prostatic hyperplasia with lower urinary tract symptoms; N13.8 - Other obstructive and reflux uropathy Category: Medical (2) Elevated PSA: Code(s): R97.20 - Elevated prostate specific antigen [PSA] Category: Medical Plan Start finasteride Six-month follow-up PSA Orders: Orders PSA,Total (Free>4and<10) 6 Months R97.20 - Elevated prostate specific antigen [PSA] Medications: New finasteride 5 mg PO DAILY 90 tabs 1RF 90 days R97.20 - Elevated prostate specific antigen [PSA] Patient Instructions: This note is constructed using voice recognition software. While every effort has been made to ensure accuracy hospital staff pharmacist errors may have been included. Imaging studies, laboratory and physical exam results were discussed and reviewed in detail. No major barriers to patient understanding were identified. An opportunity to ask questions regarding the treatment plan was provided. All questions were answered. The patient expressed understanding and agreement with the above treatment plan. The patient is aware they should contact our office by phone for worsening of their current condition or the appearance of new urologic symptoms. Compliance is encouraged with any medications and followup testing that is ordered. It is a privilege to participate in the urologic care of your patient. If you have any questions or concerns regarding treatment for the above conditions, or other urologic issues, please do not hesitate to contact me. The office telephone contact is [phone]. Sincerely, Dr Anthony Castro MD, [facility] - Urology Compassionate Specialist Care for the Genitourinary System Coding Level of Care Code Est Pt Level 4 (35946) Complex EM visit Add On G2211 Diagnoses BPH w urinary obs/LUTS N40.1; N13.8 Elevated PSA R97.20
--- OUTSIDE RECORDS SUMMARY | 2025-06-15 12:12 | XMS_ITS | Encounter Summary ---
Author Organization [employer] Address [address] [facility] 7t [place] [address] Care Team Providers Care Pump Installer Name Role Phone Hayley Alonzo Unassigned Primary [...] 09/14/2025 11:30 AM EST Office Visit Hayley [facility] [address] [place] [address] Vipul Ricardo documented as of this encounter Visit Diagnoses Not on filedocumented in this encounter Care Teams Pump Installer Relationship Specialty Start Date End Date Hayley Alonzossrafaela PCP - General Family Medicine 01/20/23 documented as of this encounter
--- OUTSIDE RECORDS SUMMARY | 2025-06-15 12:12 | XMS_ITS | Encounter Summary ---
Author Organization [employer] Address [address] [facility] 7t [place] [address] Care Team Providers Care Medication Care Manager Name Role Phone Hayley Alonzo Unassigned Primary [...] 09/14/2025 11:30 AM EST Office Visit Hayley [facility] [address] [place] [address] Vipul Ricardo documented as of this encounter Visit Diagnoses Not on filedocumented in this encounter Care Teams Medication Care Manager Relationship Specialty Start Date End Date Hayley Alonzossrafaela PCP - General Family Medicine 01/20/23 documented as of this encounter
--- OUTSIDE RECORDS SUMMARY | 2025-06-15 12:12 | XMS_ITS | Clinical Summary ---
Author Organization [facility] Address [address] [place] [phone] Phone Care Team Providers Care Assessment Nurse Name Role Phone Physician, Pcp Unknown Primary [...] Date Diagnosed Date Resolved Date Severe sepsis ([facility] V24, [facility] V28) 11/16/2024 11/19/2024 Surgical History Surgery Date Site/Laterality Comments OTHER SURGICAL HISTORY abdominal. tumor removed? pt unable to further explain Medical History Medical History Date Comments COPD (chronic obstructive pulmonary disease) ([facility] V24, [facility] V28) Hypertension Social History Tobacco Use Types [...] care for your loved ones. For example, child care director or elderly care for an older adult? [...] mmol/L LAB CHEMISTRY METHOD 11/19/2024 9:51 AM [facility] Potassium 3.3(L) 3.5 - 5.5 mmol/L LAB CHEMISTRY METHOD 11/19/2024 9:51 AM EST [facility] Chloride 103 96 - 110 mmol/L LAB CHEMISTRY METHOD 11/19/2024 9:51 AM EST [facility] CO2 30 21 - 32 mmol/L LAB CHEMISTRY METHOD 11/19/2024 9:51 AM [facility] Anion Gap 6 3 - 11 LAB CHEMISTRY METHOD 11/19/2024 9:51 AM [facility] Glucose 91 70 - 100 mg/dL LAB CHEMISTRY METHOD 11/19/2024 9:51 AM EST [facility] BUN 20 5 - 25 mg/dL LAB CHEMISTRY METHOD 11/19/2024 9:51 AM [facility] Creatinine 1.00 0.70 - 1.30 mg/dL LAB CHEMISTRY METHOD 11/19/2024 9:51 AM [facility] eGFR 80 >=60 mL/min/1. 73m2 LAB CHEMISTRY METHOD 11/19/2024 9:51 AM [facility] Comment:Calculation based on the Chronic Kidney Disease Epidemiology Collaboration (CKD-EPI) equation refit without adjustment for race. BUN/Creatinine Ratio 20.0 LAB CHEMISTRY METHOD 11/19/2024 9:51 AM [facility] Calcium 9.1 8.5 - 10.5 mg/dL LAB CHEMISTRY METHOD 11/19/2024 9:51 AM [facility] Blood Venous blood specimen / Unknown Venipuncture / Unknown 11/19/2024 7:37 AM EST 11/19/2024 7:50 AM EST Kailash Weber MD LAB BLOOD ORDERABLES Final Resul t [facility] [address] [place] [address], from Last 3 Months or Most Recently [...] currently active code status orders. Care Teams Assessment Nurse Relationship Specialty Start Date End Date Physician, Pcp Unknown PCP - General 11/16/24
--- OUTSIDE RECORDS SUMMARY | 2025-06-15 12:12 | XMS_ITS | Clinical Summary ---
Author Organization [employer] Address [address] [facility] 7 [place] [address] Care Team Providers Care Mixed Crop Farmer Name Role Phone Pcp, Hayley Unassigned Primary [...] FOR WHEEZING 3 Active Cholecalciferol (Vitamin D3) 050417 UNIT/GM powder Take 1,000 Int'l Units by mouth. 8 Active Encounters Date Type Department Care Team Description 03/15/2025 9:30 AM EDT Office Visit Hayley [facility] [address] [place], [place] [phone] Belkis Landa Encounter for dental examination (Primary [...] Description 09/14/2025 11:30 AM EST Office Visit [facility] D[facility] [address] [place] [phone] Vipul Ricardo Health Maintenance Due Date Last [...] Recently Relevant to Health Maintenance Care Teams Mixed Crop Farmer Relationship Specialty Start Date End Date PcpHayley Unassigned PCP - General Family Medicine 01/20/23
--- OUTSIDE RECORDS SUMMARY | 2025-06-15 12:12 | XMS_ITS | Encounter Summary ---
Author Organization [employer] Address [address] [facility] 7t [place] [address] Care Team Providers Care Dietary Services Manager Name Role Phone Hayley Alonzo Unassigned [...] 09/14/2025 11:30 AM EST Office Visit Hayley [facility] [address] [place] [address] Vipul Ricardo documented as of this encounter Visit Diagnoses Not on filedocumented in this encounter Care Teams Dietary Services Manager Relationship Specialty Start Date End Date Hayley Alonzossrafaela PCP - General Family Medicine 01/20/23 documented as of this encounter
== END 2025-06-15 10:46 | disposition home or self-care (01) ==
PROVIDERS: PCP Internal Medicine; Visit Provider Urology
DX: N40.1 Benign prostatic hyperplasia with lower urinary tract symptoms (principal); N13.8 Other obstructive and reflux uropathy; R97.20 Elevated prostate specific antigen [PSA]
CPT/HCPCS: 99214; G2211

== ENCOUNTER → 2025-06-15 09:59 | Outpatient (BNVA) | payer MEDICARE, SELFPAY | PROVIDERS: PCP Internal Medicine; Visit Provider Urology | DX: N40.1 Benign prostatic hyperplasia with lower urinary tract symptoms (principal); N13.8 Other obstructive and reflux uropathy; R97.20 Elevated prostate specific antigen [PSA] | CPT/HCPCS: 99212 ==